=== PATIENT | female | born 1965 | race Caucasian/White ===

== ENCOUNTER 2021-10-25 15:35 | Emergency (ER) | payer OTHER ==
[~2021-10-25] VITALS: Ht 157.5 cm; Wt 61.2 kg
[2021-10-25] MEDS ORDERED: [UNRECOGNIZED DRUG - OTHER] (15:40)
== END 2021-10-25 17:53 | disposition home or self-care (01) ==
LOC: ER 15:35
DX: S61.210A Laceration without foreign body of right index finger without damage to nail, initial encounter (principal); X58.XXXA Exposure to other specified factors, initial encounter; Y93.9 Activity, unspecified; Y92.9 Unspecified place or not applicable; Y99.9 Unspecified external cause status

== ENCOUNTER 2021-11-01 15:49 | Emergency (ER) | payer OTHER ==
[~2021-11-01] VITALS: Ht 157.5 cm; Wt 62.1 kg
[~2021-11-01 15:49] MED LIST: [UNRECOGNIZED DRUG - OTHER]
== END 2021-11-01 19:48 | disposition home or self-care (01) ==
LOC: ER 15:49
DX: Z48.02 Encounter for removal of sutures (principal)

== ENCOUNTER 2021-11-04 11:50 | Emergency (ER) | payer OTHER ==
[~2021-11-04] VITALS: Ht 157.5 cm; Wt 62.1 kg
== END 2021-11-04 15:27 ==
LOC: ER 11:50
DX: Z48.02 Encounter for removal of sutures (principal)